=== PATIENT | male | born 1970 | race Caucasian/White ===

== ENCOUNTER → 2019-09-06 | Outpatient (CLI) | payer OTHER ==
[~2019-09-06] MED LIST: MULT-245 PO
== END | disposition home or self-care (01) ==
LOC: LAB 11:08
PROVIDERS: ATTEND Nurse Anesthetist, Certified Registered
DX: Z11.59 Encounter for screening for other viral diseases (principal)
CPT/HCPCS: U0003-CS

== ENCOUNTER → 2019-09-11 | Day surgery (SDC) | payer OTHER ==
[~2019-09-11] MED LIST changes: +IPRATRPIUM/ALBUTEROL 0.5/2.5MG 3 ML NEBU. NEB PRN; +IV RINGERS SOLUTION,LACTATED 1,000 ML IV SCH; +ONDANSETRON PF 4 MG/2 ML VIAL. IV PRN; +PROPOFOL 10,000 MCG/ML (20ML) VIAL IV ONE
[2019-09-11 08:23] VITALS: BP 105/74
--- NOTE | 2019-09-12 17:07 | PATHOLOGY ---
[facility] Accession Number: [id number] . 01 Material submitted: . rectum - RECTAL POLYP . 02 Diagnosis: Colorectal biopsy, rectal polyp: - Pedunculated tubular adenoma. (STEPHANEM:neetu; 09/12/2019) MBR 09/12/2019 1351 Local . 02 Comment: There is no high-grade dysplasia or evidence of malignancy. The base of the polyp is lined by normal rectal mucosa. (STEPHANEM:neetu; 09/12/2019) . 02 Electronically signed: . Kevin Diallo MD, Pathologist NPI- [id number] . 01 Gross description: . The specimen is received in formalin, labeled "Alli Leung, rectal polyp" and consists of a polypoid segment of brown tissue measuring 0.5 x 0.4 x 0.3 cm. The margin is inked. It is bisected and entirely submitted in A1. ([facility]; 09/11/2019) JFQ/JFQ 09/11/2019 1720 Local . 02 Pathologist provided ICD-10: D12.8 . 02 CPT . 932169 Specimen Comment: A courtesy copy of this report has been sent to [phone], [phone] Specimen Comment: [id number] Specimen Comment: Report sent to / DR BENITEZ Performed at: 01 [facility] [address] [facility] [address], [place] [id number] MD Ankush Beltran MD Phone: [phone] Performed at: 02 [facility] [address] [place], [place] [id number] MD Kevin Diallo MD Phone: [phone]
== END | disposition home or self-care (01) ==
LOC: SURG 06:25
PROVIDERS: ATTEND Internal Medicine Gastroenterology
DX: Z12.11 Encounter for screening for malignant neoplasm of colon (principal); D12.8 Benign neoplasm of rectum; Z88.0 Allergy status to penicillin
CPT/HCPCS: 45385; 88305; J2704; J7120

== ENCOUNTER 2020-04-21 03:29 | Emergency (ER) | payer OTHER ==
[~2020-04-21] VITALS: Ht 172.7 cm; Wt 81.8 kg
[~2020-04-21 03:29] MED LIST changes: -IPRATRPIUM/ALBUTEROL 0.5/2.5MG 3 ML NEBU. NEB PRN; -IV RINGERS SOLUTION,LACTATED 1,000 ML IV SCH; -ONDANSETRON PF 4 MG/2 ML VIAL. IV PRN; -PROPOFOL 10,000 MCG/ML (20ML) VIAL IV ONE
--- NOTE | 2020-04-21 03:39 | PHYS DOC ---
Past History Past Medical History: Anxiety, Constipation, Diabetes, High Cholesterol Past Medical History Sleep apnea (ISAEL AGUDELO MD) Past Surgical History Rt.Hip surgery 2/5, PRK Rt. eye, nasal surgery x 2 (ISAEL AGUDELO MD) General Adult HPI: HPI: ".. I have some chronic back pain.. wear a brace.. but.. my manish massage my back.. but then later .. I startedf getting bad back and mid chest pain.. I took two aspirin and pepto bismal.. in case it was my abdomen... I recently .. had surgery.,. 03/25.. for volvulus bowel obstruction... .. have been getting over that... But this chest pain tonight things started about 1999 was able to get a little sleep but apnea began at 2:00... And since my parents both had heart attacks at age 60, so got worried about this chest pain... 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 Patient seen on arrival. Patient's pain initial onset was approximately 2000 hours. Repeat current episode at 0200 hrs. Pt. lower Rt. chest pain was 8/10 prior to fentanyl IV given by paramedics in route to emergency department. Pt. on arrival advised pain has resolved.. Pt. has had hx elevate glucose. History of sleep apnea, uses CPAP Patient denies any previous history of cardiac disease. Recent rt. hip 2/5. Surgery.( 2nd surgery on Rt. hip.). No history of trauma. No history of recent travel. No specific ill contacts. Patient denies any intake bad food. Patient denies any changes in meds. Did eat 4 pices of Pizza before going to bed tonight for super, and chicken nuggets before the pizza. Patient up-to-date with vaccinations. Normally follows at [facility]. (ISAEL AGUDELO MD) Review of Systems: Review of Systems: Constitutional: Denies fever or chills Eyes: Denies change in visual acuity HENT: Denies nasal congestion or sore throat Respiratory: Denies cough or shortness of breath Cardiovascular: Complains of right lower chest pain GI: Complants of Rt, upper abdominal pain, nausea. Denies, vomiting, bloody stools or diarrhea. History of Rt.hip impingement surgery 2/ : Denies dysuria Musculoskeletal: Chronic back pain and Rt. hip joint pain Integument: Denies rash Neurologic: Denies headache, focal weakness or sensory changes Endocrine: Denies polyuria or polydipsia Lymphatic: Denies swollen glands Psychiatric: Denies depression or anxiety (ISAEL AGUDELO MD) Family History: Family History: Mother and father both had heart attacks per age 60 (ISAEL AGUDELO MD) Current Medications: Current Meds: See nursing for home meds (ISAEL AGUDELO MD) Allergies: Allergies: Allergies Coded Allergies Type Severity Reaction Last Updated Verified Penicillins Allergy Unknown 08/30/19 Yes (ISAEL AGUDELO MD) Physical Exam: PE: Constitutional: Well developed, well nourished, moderate acute distress, non- toxic appearance. [] HENT: Normocephalic, atraumatic, bilateral external ears normal, oropharynx moist, no oral exudates, nose normal. [] Eyes: PERRLA, EOMI, conjunctiva normal, no discharge. [] Neck: Normal range of motion, no tenderness, supple, no stridor. [] Cardiovascular: Bradycardia heart rate regular rhythm, no murmur [. Monitor shows a sinus bradycardia with no acute morphology Lungs & Thorax: Bilateral breath sounds equal apex with some right lower chest wall tenderness on palpation. Breath sounds equal at apex on auscultation [] Abdomen: Bowel sounds normal, soft, right upper quadrant tenderness, no masses, no pulsatile masses. Well-healed surgery scars. Very Distended abdomen. Skin: Warm, dry, no erythema, no rash. [] Back: No tenderness, no CVA tenderness. [] Extremities: No tenderness, no cyanosis, no clubbing, ROM intact, no edema. No cording in legs. Rt. hip surgery scar. Neurologic: Alert and oriented X 3, normal motor function, normal sensory function, no focal deficits noted. [] Psychologic: Affect anxious,, judgement normal, mood normal. [] (ISAEL AGUDELO MD) EKG: EKG: []My interpretation of EKG shows sinus bradycardia at 57 bpm. There is left axis. There is a incomplete right bundle branch block. But no findings of acute STEMI with contralateral changes. [] (ISAEL AGUDELO MD) Radiology/Procedures: Radiology/Procedures: [address] [address] IMAGING REPORT Signed PATIENT: ELOISA CHERRY ACCOUNT: [id number] : 1970 LOCATION: ER AGE: 49 SEX: M EXAM STATUS: REG ER ORD. PHYSICIAN: ISAEL AGUDELO MD REASON: cp, RECENT LEFT HIP IMPINGEMENT SURGERY PROCEDURE: ACUTE ABDOMEN SERIES Acute abdominal series to include a PA chest radiograph 04/21/2020 Clinical History: Chest and abdominal pain. A PA digital radiograph of the chest was obtained. Two AP supine and an erect AP digital radiographs of the abdomen/pelvis were obtained. No previous studies are available for comparison. The cardiac and mediastinal silhouettes are within normal limits in size and configuration. No pulmonary infiltrate is seen. No pleural effusion or pneumothorax is noted. The abdominal bowel gas pattern is nonobstructive. A moderate to large amount of stool is seen throughout the colon. There is no evidence of free air. No radiopaque calculus is seen. Calcifications are seen within the pelvis consistent with phleboliths. Very mild degenerative changes are seen involving the lumbar spine. Mild degenerative changes are seen involving both hips. IMPRESSION: Nonobstructive bowel gas pattern. Moderate to large amount of stool is seen throughout the colon. Electronically signed by: Wale Sanders MD (04/21/2020 4:33 AM) [id number] DICTATED AND SIGNED BY: WALE SANDERS MD DATE: 04/21/20 0429 CC: ISAEL AGUDELO MD; EVER BENITEZ DO ~MTH0 0 (ISAEL AGUDELO MD) Heart Score: HEART Score for Chest Pain: HEART Score for Chest Pain Response (Comments) Value History Slighlty/Non-Suspicious 0 ECG Normal 0 Age >45 - < 65 1 Risk Factors 1 or 2 Risk Factors 1 Troponin < Normal Limit 0 Total 2 Risk Factors: Risk Factors: DM, Current or recent (<one month) smoker, HTN, HLP, family history of CAD, obesity. Risk Scores: Score 0 - 3: 2.5% MACE over next 6 weeks - Discharge Home Score 4 - 6: 20.3% MACE over next 6 weeks - Admit for Clinical Observation Score 7 - 10: 72.7% MACE over next 6 weeks - Early Invasive Strategies (ISAEL AGUDELO MD) Course & Med Decision Making: Course & Med Decision Making Pertinent Labs and Imaging studies reviewed. (See chart for details) Recheck - 5:11 no pain. Ultrasound pending at shift change. Patient endorsed to at sift change. She will make disposition Impression: 1. Chest Pain-atypical 2. Bradycardia 3. History of recent rt. hip surgery 04/11-impingement release 4. Hypomagnesium 5. Constipation 6. GERD [] (ISAEL AGUDELO MD) Course & Med Decision Making On reevaluation patient reports his abdominal pain is completely resolved. Abdominal exam benign with no peritonitis or guarding. Patient's labs unremarkable. Right upper quadrant ultrasound shows normal exam. Urinalysis with no infection or hematuria. Patient with no pain out of proportion. X-ray shows constipation. 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 Patient given strict ED return precautions if pain should recur, dehydration or fever. DUE TO PROLONGED EMR DOWNTIME/HOSPITAL POLICY, PTS' FULL CHART regarding my evaluation WAS DOCUMENTED VIA PAPER CHARTING. - PLEASE REFER TO PAPER DOCUMENTS REGARDING PTS' ED VISIT. (GLORIA NORWOOD DO) Dragon Disclaimer: Dragon Disclaimer: This electronic medical record was generated, in whole or in part, using a voice recognition dictation system. (ISAEL AGUDELO MD) Departure Departure: Impression: Primary Impression: Right upper quadrant abdominal pain Additional Impression: Constipation Disposition: 01 DC HOME SELF CARE/HOMELESS Condition: STABLE Referrals: EVER BENITEZ DO (PCP) Dragon Disclaimer This chart was dictated in whole or in part using Voice Recognition software in a busy, high-work load, and often noisy Emergency Department environment. It may contain unintended and wholly unrecognized errors or omissions. (ISAEL AGUDELO MD) Dragon Disclaimer This chart was dictated in whole or in part using Voice Recognition software in a busy, high-work load, and often noisy Emergency Department environment. It may contain unintended and wholly unrecognized errors or omissions. (ISAEL AGUDELO MD) ISAEL AGUDELO MD Apr 21, 2020 03:39 GLORIA NORWOOD DO Apr 21, 2020 13:52
[2020-04-21 04:15] LABS: BASO # 0.1 x10^3/uL (0.0-0.2); BASO % 1 % (0-3); EOS # 0.1 x10^3/uL (0.0-0.7); EOS % 2 % (0-3); HEMATOCRIT 40.9 % (39.0-53.0); HEMOGLOBIN 13.9 g/dL (13.0-17.5); LYMPH # 1.6 x10^3/uL (1.0-4.8); LYMPH % 19 % (24-48); MEAN CORPUSCULAR HEMOGLOBIN 31 pg (25-35); MEAN CORPUSCULAR HGB CONC 34 g/dL (31-37); MEAN CORPUSCULAR VOLUME 91 fL (79-100); MONO # 0.7 x10^3/uL (0.0-1.1); MONO % 8 % (0-9); NEUT # 6.1 x10^3uL (1.8-7.7); NEUT % 71 % (31-73); PLATELET COUNT 247 x10^3/uL (140-400); RED CELL DISTRIBUTION WIDTH 12.8 % (11.5-14.5); WHITE BLOOD COUNT 8.6 x10^3/uL (4.0-11.0)
[2020-04-21 04:22] LABS: CALCIUM 8.3 mg/dL (8.5-10.1); GFR 78.8
[2020-04-21] MEDS ORDERED: MAGNESIUM HYDROXIDE 2,400 MG/30 ML ORAL.SUSP. PO ONE (04:30)
[2020-04-21] MEDS ORDERED: FAMOTIDINE 20 MG/2 ML VIAL IVP ONE (04:30)
[2020-04-21] MEDS ORDERED: IV RINGERS SOLUTION,LACTATED 1,000 ML IV SCH (04:30)
[2020-04-21 04:35] LABS: ALBUMIN 3.4 g/dL (3.4-5.0); DIRECT BILIRUBIN 0.1 mg/dL (0.0-0.2); MAGNESIUM 1.7 mg/dL (1.8-2.4); TOTAL BILIRUBIN 0.4 mg/dL (0.2-1.0); TOTAL PROTEIN 6.4 g/dL (6.4-8.2)
--- NOTE | 2020-04-21 04:36 | RAD ---
Acute abdominal series to include a PA chest radiograph 04/21/2020 Clinical History: Chest and abdominal pain. A PA digital radiograph of the chest was obtained. Two AP supine and an erect AP digital radiographs of the abdomen/pelvis were obtained. No previous studies are available for comparison. The cardiac and mediastinal silhouettes are within normal limits in size and configuration. No pulmon corinne infiltrate is seen. No pleural effusion or pneumothorax is noted. The abdominal bowel gas pattern is nonobstructive. A moderate to large amount of stool is seen throug hout the colon. There is no evidence of free air. No radiopaque calculus is seen. Calcifications are seen within the pelvis consistent with phleboliths. Very mild degenerative changes are seen involving the lumbar spine. Mild degenerative changes are seen involving both hips. IMPRESSION: Nonobstructive bowel gas pattern. Moderate to large amount of stool is seen throughout th e colon. Electronically signed by: Wale Sanders MD (04/21/2020 4:33 AM) [id number]
--- NOTE | 2020-04-21 05:13 | EKG ---
[address] [address] Test Date: 2020-04-21 Test Time: 03:34:32 Pat Name: ELOISA CHERRY Department: Room: Gender: M Fringe Weaver: : 1970 Requested By: ISAEL AGUDELO Order Number: [id number] Reading MD: Measurements Intervals [place] Rate: 57 P: 43 UT: 204 QRS: -22 QRSD: 104 T: 5 QT: 384 QTc: 376 Interpretive Statements SINUS RHYTHM LEFTWARD AXIS INCOMPLETE RIGHT BUNDLE BRANCH BLOCK OTHERWISE NORMAL ECG RI6.02 No previous ECG available for comparison
[2020-04-21 06:19] LABS: BACTERIA,URINE 0 /HPF (0-FEW); BILIRUBIN,URINE NEG (NEG); CLARITY,URINE CLEAR; COLOR,URINE YELLOW; GLUCOSE,URINE NEG (NEG); NITRITE,URINE NEG (NEG); RBC,URINE 0 /HPF (0-2); SQUAMOUS EPITHELIAL CELL,UR OCC /LPF; UROBILINOGEN,URINE 0.2 mg/dL (0.2 mg/dL); WBC,URINE OCC /HPF (0-4)
--- NOTE | 2020-04-21 08:37 | RAD ---
US ABDOMEN LTD: 04/21/2020 7:50 AM Indication: 49 years old Male. Right upper quadrant pain. Comparison: None. TECHNIQUE: Sonographic evaluation of the right upper quadrant was performed utilizing grayscale and c olor Doppler imaging. FINDINGS: Liver: Homogenous normal echotexture.. There is hepatopedal flow within the portal venous system. Rig ht hepatic lobe measures 14.8 cm. Biliary system: CBD measures 3 mm. There is no intrahepatic or extrahepatic biliary dilatation. Gallbladder: No gallstones, wall thickening or pericholecystic fluid. . Sonographic Morales sign: Nega tive Pancreas: Visualized head and uncinate process are unremarkable. Body and tail are not visualized. Right kidney: 10.5 x 6.3 x 5.0 cm. No hydronephrosis. Normal echotexture without focal mass or renal calculus. Free fluid:None. IMPRESSION: No cholelithiasis or sonographic evidence for acute cholecystitis. Electronically signed by: Heidi Gonzalez MD (04/21/2020 8:35 AM) [id number]
[2020-04-21 09:45] VITALS: BP 128/74
== END 2020-04-21 10:15 | disposition home or self-care (01) ==
LOC: ER 03:29
DX: R07.89 Other chest pain (principal); K59.00 Constipation, unspecified; K21.9 Gastro-esophageal reflux disease without esophagitis; R10.11 Right upper quadrant pain; R00.1 Bradycardia, unspecified; E83.42 Hypomagnesemia; E11.9 Type 2 diabetes mellitus without complications; E78.00 Pure hypercholesterolemia, unspecified; M25.551 Pain in right hip; Z98.890 Other specified postprocedural states; Z88.0 Allergy status to penicillin
CPT/HCPCS: 36415; 74022; 76705; 80048; 80076; 81001; 82150; 82550; 83690; 83735; 83880; 84443; 84484; 85025; 85379; 85610; 85730; 93005; 96361; 96374; 99285; J3490; J7120

== ENCOUNTER 2020-12-20 13:45 | Emergency (ER) | payer OTHER ==
[~2020-12-20] VITALS: Ht 172.7 cm; Wt 81.8 kg
[2020-12-20 14:00] VITALS: BP 145/93
--- NOTE | 2020-12-20 14:17 | PHYS DOC ---
Past History Past Medical History: Anxiety, Constipation, Diabetes, High Cholesterol Additional Past Medical Histor: sleep apnea (MAURICE SEVILLA APRN) Past Surgical History: Cholecystectomy, Hip Replacement Additional Past Surgical Histo: PRK, deviated septum repair (MAURICE SEVILLA APRN) Alcohol Use: None (MAURICE SEVILLA APRN) General Adult EDM: Chief Complaint: CONSTIPATION HPI: HPI: Patient is a 50-year-old male who presents to the emergency department for constipation. Patient reports that he had a cholecystectomy performed at [facility] on Tuesday and has not had a normal bowel movement since. He was discharged home with Percocet but has weaned himself off of it. He reports that he has been taking MiraLAX and stool softeners and had a small hard movement on but has not had a bowel movement since. Patient states that he tried to drink a quarter of a bottle of mag citrate today but could not tolerate to drink the rest of it because of the taste. Patient is also reporting generalized abdominal tenderness. He denies fevers, nausea, vomiting, blood in his stools. He states that he is having flatulence. (MAURICE SEVILLA APRN) Review of Systems: Review of Systems: 14 body systems of the review of systems have been reviewed. See HPI for pertinent positive and negative responses, otherwise all other systems are negative, nonpertinent or noncontributory (MAURICE SEVILLA APRN) Allergies: Allergies: Allergies Coded Allergies Type Severity Reaction Last Updated Verified Penicillins Allergy Unknown 08/30/19 Yes (MAURICE SEVILLA APRN) Physical Exam: PE: Constitutional: Well developed, well nourished, no acute distress, non-toxic appearance. [] HENT: Normocephalic, atraumatic, bilateral external ears normal, oropharynx moist, no oral exudates, nose normal. [] Eyes: PERRL, EOMI, conjunctiva normal, no discharge. [] Neck: Normal range of motion, no tenderness, supple, no stridor. [] Cardiovascular:Heart rate regular rhythm, no murmur [] Lungs & Thorax: Bilateral breath sounds clear to auscultation [] Abdomen: Bowel sounds normal, soft, generalized abdominal tenderness with palpation, abdomen soft, non distended, surgical incisions are without signs of infection, no masses, no pulsatile masses. [] Skin: Warm, dry, no erythema, no rash. [] Back: Normal ROM. Extremities: No tenderness, no cyanosis, no clubbing, ROM intact, no edema. [] Neurologic: Alert and oriented X 3, normal motor function, normal sensory function, no focal deficits noted. [] Psychologic: Affect normal, judgement normal, mood normal. [] (MAURICE SEVILLA APRN) Current Patient Data: Labs: Laboratory Tests Test 12/20/20 14:24 White Blood Count 8.7 x10^3/uL Red Blood Count 5.02 x10^6/uL Hemoglobin 15.9 g/dL Hematocrit 45.2 % Mean Corpuscular Volume 90 fL Mean Corpuscular Hemoglobin 32 pg Mean Corpuscular Hemoglobin Concent 35 g/dL Red Cell Distribution Width 12.8 % Platelet Count 306 x10^3/uL Neutrophils (%) (Auto) 71 % Lymphocytes (%) (Auto) 16 % Monocytes (%) (Auto) 10 % Eosinophils (%) (Auto) 2 % Basophils (%) (Auto) 1 % Neutrophils # (Auto) 6.2 x10^3uL Lymphocytes # (Auto) 1.4 x10^3/uL Monocytes # (Auto) 0.8 x10^3/uL Eosinophils # (Auto) 0.2 x10^3/uL Basophils # (Auto) 0.1 x10^3/uL Sodium Level 136 mmol/L Potassium Level 4.1 mmol/L Chloride Level 100 mmol/L Carbon Dioxide Level 30 mmol/L Anion Gap 6 Blood Urea Nitrogen 12 mg/dL Creatinine 0.8 mg/dL Estimated GFR (Cockcroft-Gault) 101.5 BUN/Creatinine Ratio 15 Glucose Level 117 mg/dL Calcium Level 9.3 mg/dL Total Bilirubin 0.7 mg/dL Aspartate Amino Transf (AST/SGOT) 30 U/L Alanine Aminotransferase (ALT/SGPT) 49 U/L Alkaline Phosphatase 63 U/L Total Protein 7.5 g/dL Albumin 4.0 g/dL Albumin/Globulin Ratio 1.1 (MAURICE SEVILLA APRN) EKG: EKG: [] (MAURICE SEVILLA APRN) Radiology/Procedures: Radiology/Procedures: []PROCEDURE: KUB PROCEDURE: AP abdomen 12/20/2020 2:33 PM. REASON FOR STUDY: Reason: constipation / Spl. Instructions: / History: . COMPARISON: 04/21/2020. FINDINGS: Gas is seen mostly in the colon. There is mild distention without evidence of significant obstruction. There appears to be some stool in the descending colon, although overall stool volume is reduced from the prior exam. No abnormal masses or gas collections are seen. IMPRESSION: Nonobstructive gas pattern. Electronically signed by: Juan Rojo Jr., MD (12/20/2020 2:34 PM) [id number] DICTATED AND SIGNED BY: JUAN ROJO Jr, MD DATE: 12/20/20 1433 CC: MAURICE SEVILLA APRN; EVER BENITEZ DO ~MTH0 0 (MAURICE SEVILLA APRN) Heart Score: C/O Chest Pain: N/A Risk Factors: Risk Factors: DM, Current or recent (<one month) smoker, HTN, HLP, family history of CAD, obesity. Risk Scores: Score 0 - 3: 2.5% MACE over next 6 weeks - Discharge Home Score 4 - 6: 20.3% MACE over next 6 weeks - Admit for Clinical Observation Score 7 - 10: 72.7% MACE over next 6 weeks - Early Invasive Strategies (MAURICE SEVILLA APRN) Course & Med Decision Making: Course & Med Decision Making Pertinent Labs and Imaging studies reviewed. (See chart for details) Patient presents to the emergency department for constipation. Blood work performed in the ER as patient is postop Cholecystectomy and KUB to r/o constipation vs obstruction. Blood work was unremarkable. KUB showed nonobstructive gas pattern. GI cocktail provided for abdominal pain. Patient advised to take mag citrate at home-given in ER. He was also advised to follow- up with the general surgeon who performed the surgery at [facility]. I discussed with patient all findings and diagnostic testing as well as the need to follow-up with PCP for further evaluation and treatment or return to the ER if any new or worsening symptoms. Strict return precautions were also discussed at length. Patient voiced understanding and agreement with the plan. Patient is hemodynamically stable at the time of disposition. (MAURICE SEVILLA APRN) Course & Med Decision Making I was the Attending physician on the above date of service of this patient. This patient was evaluated, examined, treated, and dispositioned from the emergency department by the mid-level practitioner. Although I was working at the time , no assistance was requested. Electronically signed, Eduardo Plascencia DO (EDUARDO PLASCENCIA DO) Jazmin Disclaimer: Jazmin Disclaimer: This electronic medical record was generated, in whole or in part, using a voice recognition dictation system. (MAURICE SEVILLA APRN) Departure Departure: Impression: Primary Impression: Constipation Qualified Codes: K59.00 - Constipation, unspecified Disposition: HOME / SELF CARE / HOMELESS Condition: GOOD Referrals: EVER BENITEZ DO (PCP) Patient Instructions: Constipation, Adult Additional Instructions: You were seen in the emergency department for constipation. The blood work shows no acute findings. The scan of your abdomen shows gas and stool without an obstruction. You were sent home with a bottle of magnesium citrate. Please drink the entire bottle when you get home to produce a bowel movement. I would follow-up with your surgeon that performed her cholecystectomy as soon as possible, there is always a doctor quality control systems manager, I would call them leave the ER. Return to the emergency department if you develop worsening of your abdominal pain, intractable nausea or vomiting, high fevers refractory to treatment, blood in your stools. EMERGENCY DEPARTMENT GENERAL DISCHARGE INSTRUCTIONS Thank you for coming to [facility] (ED) today and trusting us with you care. We trust that you had a positivie experience in our Emergency Department. If you wish to speak to the department management, you may call the director at [phone]. YOUR FOLLOW UP INSTRUCTIONS ARE FOLLOWS: 1. Do you have a private Doctor? If you do not have a private doctor, please ask for a resource list of physicians or clinics that may be able to assist you with follow up care. 2. The Emergency Physician has interpreted your x-rays. The X-Ray specialist will also review them. If there is a change in the findings, you will be notified in 48 hours when at all possible. 3. A lab test or culture has been done, your results will be reviewed and you will be notified if you need a change in treatment. ADDITIONAL INSTRUCTIONS AND INFORMATION: 1. Your care today has been supervised by a physician who is specially trained in emergency care. Many problems require more than one evaluation for a complete diagnosis and treatment. We recommend that you schedule your follow up appointment as recommended to ensure complete treatment of you illness or injury. If you are unable to obtain follow up care and continue to have a problem, or if your condition worsens, we recommend that you return to the ED. 2. We are not able to safely determine your condition over the phone nor are we able to give sound medical advice over the phone. For these safety reasons, if you call for medical advice we will ask you to come to the ED for further evaluation. 3. If you have any questions regarding these discharge instructions please call the ED at [phone]. SAFETY INFORMATION: In the interest of safety, wellness, and injury prevention; we encourage you to wear your sealbelt, if you smoke; quite smoking, and we encourage family to use a protective helmet for bicycling and other sporting events that present an increased risk for head injury. IF YOUR SYMPTOMS WORSEN OR NEW SYMPTOMS DEVELOP, OR YOU HAVE CONCERNS ABOUT YOUR CONDITION; OR IF YOUR CONDITION WORSENS WHILE YOU ARE WAITING FOR YOUR FOLLOW UP APPOIN TMENT; EITHER CONTACT YOUR PRIMARY CARE DOCTOR, THE PHYSICIAN WHOSE NAME AND NUMBER YOU WERE GIVEN, OR RETURN TO THE ED IMMEDIATELY. MAURICE SEVILLA APRN Dec 20, 2020 14:17 EDUARDO PLASCENCIA DO Dec 21, 2020 13:14
--- NOTE | 2020-12-20 14:37 | RAD ---
PROCEDURE: AP abdomen 12/20/2020 2:33 PM. REASON FOR STUDY: Reason: constipation / Spl. Instructions: / History: . COMPARISON: 04/21/2020. FINDINGS: Gas is seen mostly in the colon. There is mild distention without evidence of significant o bstruction. There appears to be some stool in the descending colon, although overall stool volume is reduced from the prior exam. No abnormal masses or gas collections are seen. IMPRESSION: Nonobstructive gas pattern. Electronically signed by: Himanshu Rojo Jr., MD (12/20/2020 2:34 PM) [id number]
[2020-12-20 14:54] LABS: BASO # 0.1 x10^3/uL (0.0-0.2); BASO % 1 % (0-3); EOS # 0.2 x10^3/uL (0.0-0.7); EOS % 2 % (0-3); HEMATOCRIT 45.2 % (39.0-53.0); HEMOGLOBIN 15.9 g/dL (13.0-17.5); LYMPH # 1.4 x10^3/uL (1.0-4.8); LYMPH % 16 % (24-48); MEAN CORPUSCULAR HEMOGLOBIN 32 pg (25-35); MEAN CORPUSCULAR HGB CONC 35 g/dL (31-37); MEAN CORPUSCULAR VOLUME 90 fL (79-100); MONO # 0.8 x10^3/uL (0.0-1.1); MONO % 10 % (0-9); NEUT # 6.2 x10^3uL (1.8-7.7); NEUT % 71 % (31-73); PLATELET COUNT 306 x10^3/uL (140-400); RED BLOOD COUNT 5.02 x10^6/uL (4.30-5.70); RED CELL DISTRIBUTION WIDTH 12.8 % (11.5-14.5); WHITE BLOOD COUNT 8.7 x10^3/uL (4.0-11.0)
[2020-12-20 14:59] LABS: CALCIUM 9.3 mg/dL (8.5-10.1); CREATININE 0.8 mg/dL (0.7-1.3); GFR 101.5; POTASSIUM 4.1 mmol/L (3.5-5.1)
[2020-12-20 15:04] LABS: ALBUMIN/GLOBULIN RATIO 1.1 (1.0-1.7); TOTAL BILIRUBIN 0.7 mg/dL (0.2-1.0); TOTAL PROTEIN 7.5 g/dL (6.4-8.2)
[2020-12-20] MEDS ORDERED: MAGNESIUM CITRATE 296 ML SOLUTION. PO ONE (15:45)
[2020-12-20] MEDS ORDERED: LIDO:MAALOX 1:1 20 ML SINGLE DOSE. PO ONE (15:45)
== END 2020-12-20 15:42 | disposition home or self-care (01) ==
LOC: ER 13:45
DX: K59.00 Constipation, unspecified (principal); Z90.49 Acquired absence of other specified parts of digestive tract; Z88.0 Allergy status to penicillin; E78.5 Hyperlipidemia, unspecified
CPT/HCPCS: 36415; 74018; 80053; 85025; 99284-25